=== PATIENT | male | born 1955 | race Caucasian/White ===

== ENCOUNTER 2017-03-20 23:05 | Inpatient (IN) | payer SELFPAY ==
[~2017-03-20 23:05] MED LIST: ISOVUE-370 76%-LOCM 1 ML ONE
[2017-03-20 23:44] LABS: #Basophils 0.1 thou/uL (0.0-0.2); #Eosinphils 0.1 thou/uL (0.0-0.7); #Monocytes 0.6 thou/uL (0.11-0.59); #Neutrophils 9.7 thou/uL (1.40-6.50); %Basophils 0.8 % (0.0-1.0); %Eosinophils 0.5 % (0.0-10.0); %Lymphocytes 16.1 % (21.0-51.0); %Monocytes 4.6 % (0.0-10.0); Hematocrit 44.4 % (42.0-52.0); Mean Platelet Volume 6.6 fL (7.4-10.4); Red Blood Cell (RBC) Count 4.43 mill/uL (4.70-6.10); White Blood Cell (WBC) Count 12.5 thou/uL (4.8-10.8)
[2017-03-20 23:53] LABS: PTT 25.2 SEC (22.9-36.1); Prothrombin Time 13.5 SEC (12.0-14.7)
--- NOTE | 2017-03-20 23:57 | RAD ---
PORTABLE CHEST 03/20/17 PROVIDED CLINICAL HISTORY: Chest pain. FINDINGS: No comparisons. The cardiac and mediastinal silhouette is within normal limits. The lungs appear alex r. No pleural fluid or pneumothorax apparent. Comparison is made to the study dated 07/20/12. Calcified granulomata at the right lung base are again seen. IMPRESSION: No evidence for an acute cardiopulmonary process. POS: [facility]
[2017-03-21 00:04] LABS: ALT (SGPT) 18 U/L (8-55); AST (SGOT) 17 U/L (5-34); Alkaline Phosphatase 63 U/L (40-150); Anion Gap 14 mmol/L (10-20); BUN (Urea Nitrogen) 17 mg/dL (8.4-25.7); Bilirubin, Total 0.4 mg/dL (0.2-1.2); CK (CPK) 63 U/L (30-200); Calc. Creatinine Clearance 0 mL/min (70-130); Calcium 9.1 mg/dL (7.8-10.44); Carbon Dioxide 26 mmol/L (23-31); Chloride 101 mmol/L (98-107); Estimated GFR-MDRD Greater than 90; Globulin 2.9 g/dL (2.4-3.5); Protein, Total 6.7 g/dL (5.8-8.1)
[2017-03-21 00:09] LABS: Troponin I Less than 0.010 ng/mL (< 0.028)
[2017-03-21] MEDS ORDERED: Enoxaparin Sodium 40 MG/0.4 ML SYRINGE ONE (03:13)
--- NOTE | 2017-03-21 04:35 | CON ---
DATE OF EMERGENCY ROOM ENCOUNTER: 03/21/2017 HISTORY OF PRESENT ILLNESS: Mr. De La Garza is a 61-year-old gentleman with chronic bilateral leg claudica tion. He noticed this evening he had a cold left lower leg that was numb [facility] He took an aspirin before he came here. Once he got here, his leg began to feel better. He was found to have on examination, palpable bilateral femoral pulses. His right posterior tibial pulse is palpable. On the left, his leg was cool. He had a Doppler signal only in his posterior tib ial artery. CT angiogram was performed that shows patent aorta. At the aortic bifurcation, there is heavy calcif ication of the right common iliac artery with near occlusion. Left iliac system is widely patent. O n the right, there is normal vasculature from the inguinal ligament to the foot. On the left, the tapia perficial femoral artery is occluded in its mid segment and reconstitutes at the above knee popliteal area via collaterals. Currently, the patient is resting comfortably. He is actually [facility] His foot feels better, although it is still tingly. PAST MEDICAL HISTORY: 1. Hypertension. 2. Hyperlipidemia. PAST SURGICAL HISTORY: 1. Left knee surgery. 2. Partial nephrectomy on the right. CURRENT MEDICATIONS AT HOME: 1. Lisinopril 20 mg q. day. 2. Aspirin 325 mg q. day. 3. Atorvastatin 20 mg at bedtime. ALLERGIES: None. REVIEW OF SYSTEMS: Ten point review of systems is performed and is negative except as above. PHYSICAL EXAMINATION: GENERAL: This is a well-developed, well-nourished male in no acute distress. VITAL SIGNS: Pulse is 83 and regular, blood pressure is 119/83. HEENT: Sclerae nonicteric. Pupils are equal, round bilaterally. NECK: Supple, without bruit. CHEST: Clear bilaterally. HEART: Rhythm is regular, without murmur. ABDOMEN: Soft and nontender, without mass. EXTREMITIES: No cyanosis, clubbing or edema. VASCULAR: He has palpable carotid, radial, and femoral pulses bilaterally. On the right, he has a p alpable posterior tibial pulse. On the left, he has a monophasic Doppler signal in his posterior tib ial area. ASSESSMENT AND PLAN: Peripheral vascular disease with left foot rest pain. Patient has been given L ovenox in the emergency department along with aspirin. I will admit him to the telemetry floor to mo nitor his heart rhythm. Later today, we will take him for angiograms. Plan is for right groin stick , right common iliac artery intervention, left SFA intervention if possible. Patient understands, triplett s consented and will plan for intervention later today.
--- NOTE | 2017-03-21 08:28 | CT ---
PRELIMINARY REPORT/[facility]/EMERGENCY AFTER HOURS PROCEDURE: EXAM: CT Angiography Abdomen and Pelvis With Runoff to the Lower Extremities With Intravenous Contrast EXAM DATE/TIME: Exam ordered 03/21/2017 1:07 AM CLINICAL HISTORY: 61 years old, male; Signs and symptoms; Numbness; Lower extremity; Left; Patient HX: Er 6; Pain and d ecreased sensation to lle. Per ems, pulses weak and foot discolored on arrival, color is now getting better and feeling is coming back. TECHNIQUE: Axial computed tomographic angiography images of the abdomen, pelvis and lower extremities with intra venous contrast using CT angiography protocol. MIP reconstructed images were created and reviewed. Coronal and sagittal reformatted images were created and reviewed. CONTRAST: 100 mL of ISOVUE 370 administered intravenously. COMPARISON: No relevant prior studies available. FINDINGS: Lower thorax: No acute findings. VASCULATURE: Aorta: The aorta demonstrates moderate atherosclerotic calcification. There is calcified and noncalci fied atheromatous plaque at the aortic bifurcation resulting in mild bilateral common iliac artery st enosis. No abdominal aortic aneurysm. No dissection. Celiac trunk and mesenteric arteries: No acute findings. No occlusion or significant stenosis. SMA an d ANA LUISA are patent. Renal arteries: No acute findings. No occlusion or significant stenosis. Right iliac arteries: There is mild atheromatous calcified and noncalcified plaque within the bilater al external iliac arteries resulting in mild stenosis. Right femoral/popliteal arteries: The RIGHT femoral artery patent with mild stenosis just proximal to the SFA/profunda bifurcation. The RIGHT profunda femoris artery is patent. The RIGHT superficial fem oral artery is patent. The RIGHT popliteal artery is patent and there is patent runoff to the RIGHT f oot. Right calf/foot arteries: No acute findings. No occlusion or significant stenosis. Left iliac arteries: See above. Left femoral/popliteal arteries: There is occlusion of the above-knee LEFT popliteal artery extending proximally 6 cm with above-knee reconstitution via collateralization with patency of the below-knee popliteal artery and patent runoff to the LEFT foot. The LEFT femoral artery is patent with mild sten osis just proximal to the SFA/profunda bifurcation. The LEFT SFA is patent. The LEFT profunda femoris artery is patent. Left calf/foot arteries: No acute findings. No occlusion or significant stenosis. ABDOMEN: Liver: The visualized liver is unremarkable. Gallbladder and bile ducts: The gallbladder is normal. There is no evidence of biliary ductal dilatio n. No calcified stones. Pancreas: Normal. No ductal dilation. No mass. Spleen: Visualized spleen is normal. Adrenals: Normal. No mass. Kidneys and ureters: The kidneys are normal. No hydronephrosis. Stomach and bowel: There is nonspecific distal colonic wall thickening. This may be related to incomp lete distention. Appendix: A normal appendix is identified. PELVIS: Bladder: The bladder is mildly distended. Reproductive: The prostate gland and seminal vesicles are normal. ABDOMEN, PELVIS and LOWER EXTREMITIES: Intraperitoneal space: Normal. No significant fluid collection. No free air. Bones/joints: No acute fracture. No dislocation. Soft tissues: Normal. Lymph nodes: Normal. No enlarged lymph nodes. IMPRESSION: There is occlusion of the above-knee LEFT popliteal artery extending proximally 6 cm with aboveknee r econstitution via collateralization with patency of the below-knee popliteal artery and patent runoff to the LEFT foot. Thank you for allowing us to participate in the care of your patient. Dictated and Authenticated by: Isacc Aguirre MD 03/21/2017 2:30 AM Central Time ([place] & [place]) FINAL REPORT CT ANGIO ABDOMEN AND PELVIS AND BILATERAL LOWER EXTREMITIES: Multiple axial tomograms obtained through the abdomen and pelvis and lower extremities in arterial ph ase with angio protocol. Multiplanar reconstruction and 3D post processing performed. FINDINGS: There is diffuse atherosclerotic disease involving the abdominal aorta. N significant aneurysmal dil atation. Atherosclerotic disease is seen in both common iliac arteries without significant stenosis. There is occlusion of the left superficial artery at Trever's canal in the distal side. This was inc orrectly described as occlusion of the left above the popliteal artery on the preliminary report. Th e popliteal does reconstitute above the knee space and there is 3-vessel trifurcation below the joint space. I am in agreement with the preliminary report. POS: [facility]
[2017-03-21] MEDS ORDERED: Aspirin 325 MG TAB ONE (13:39)
[2017-03-21] MEDS ORDERED: Lisinopril 10 MG TAB ONE (13:39)
[2017-03-21] MEDS ORDERED: Fentanyl 100 MCG/2 ML VIAL ONE ×2 (14:38→16:04)
[2017-03-21] MEDS ORDERED: Midazolam HCl 2 mg/2 ml Vial ONE (14:39)
[2017-03-21] MEDS ORDERED: Heparin 10,000 UNITS/1 ML VIAL ONE (15:03)
[2017-03-21] MEDS ORDERED: hydrALAZINE 20 MG/ML VIAL ONE (15:30)
[2017-03-21] MEDS ORDERED: Metoprolol Tartrate 5 MG/5 ML VIAL ONE (15:38)
[2017-03-21] MEDS ORDERED: Metoprolol Tartrate 5 MG/5 ML VIAL IVP PRN (17:02)
[2017-03-21] MEDS ORDERED: HYDROcodone/Acetaminophen 5/325 mg Tablet PO PRN ×2 (17:02)
[2017-03-21] MEDS ORDERED: Fentanyl 100 MCG/2 ML VIAL SLOW IVP PRN ×2 (17:02)
[2017-03-21] MEDS ORDERED: hydrALAZINE 20 MG/ML VIAL SLOW IVP PRN ×2 (17:02)
[2017-03-21] MEDS ORDERED: Sodium Chloride 0.9% 1,000 ML IV SCH (18:15)
--- NOTE | 2017-03-21 22:54 | CCL ---
DATE OF PROCEDURE: 03/21/2017 PREOPERATIVE DIAGNOSIS: Peripheral vascular disease with occluded left superficial femoral artery an d near occlusion of the right common iliac artery with left leg rest pain. POSTOPERATIVE DIAGNOSIS: Peripheral vascular disease with occluded left superficial femoral artery a nd near occlusion of the right common iliac artery with left leg rest pain. PROCEDURES: 1. Ultrasound-guided vascular access of the right common femoral artery. 2. Abdominal aortogram with pelvic runoff. 3. Left common iliac, external iliac, SFA, popliteal, tibioperoneal trunk angiogram with left leg ru noff. 4. Right external iliac, common iliac artery angiogram. 5. Left superficial femoral artery SHOP HELPER with a 4 x 100 [place] balloon followed by a 4 x 100 Lutonix balloon. These were 3-minute inflations. 6. Left SFA stenting with a 5 x 40 Innova nitinol stent posted with a 5 x 40 [place] balloon. 7. Right common iliac primary stenting with a 9 x 25 Express LD stent taken to 12 mmHg. TOTAL FLUOROSCOPY TIME: 9.5 minutes. TOTAL CONTRAST: 60 mL DESCRIPTION OF PROCEDURE: After consent was obtained, the patient was brought to the technical laboratory asst and pl aced in the supine position on the technical laboratory asst table. Appropriate anesthetic monitor was placed, IV sed ation begun. Groins were prepped and draped in usual sterile fashion. Using the ultrasound guidance , the right groin was anesthetized with 1% lidocaine. Percutaneous access to the right common femora l artery was obtained using ultrasound guidance. A 5-Maltese sheath was placed. The Contra catheter was then positioned in the lower abdominal aorta. Hand injected aortogram was performed revealing no rmal aortic vasculature. There was a tight stenosis of the right common iliac artery that was noted. Left common internal and external iliac arteries were all within normal limits. Contra catheter wa s guided over the abdominal aorta. Tip of the catheter was positioned in the common iliac artery and hand injected arteriogram was performed. This allowed us to guide the catheter through the tortuous iliac system into the external iliac artery. Hand injected arteriogram was performed with the tip o f the catheter in the external iliac artery illuminating the upper thigh. SFA had sluggish flow in i t. The profunda was widely patent, common femoral artery was widely patent. The catheter was then g uided down into the superficial femoral artery. Hand injected arteriogram was performed illuminating an occluded area with calcification and some thrombus within the superficial femoral artery mid port ion. This was approximately 6 cm in length. There was a good reconstitution of the above knee popli teal artery. Angled-glide catheter and Glidewire were used to traverse the occlusion. Hand injected arteriogram was performed with the tip of the catheter in the popliteal artery showing good flow int o the tibials. Catheter was passed further into the tibioperoneal trunk and hand injected arteriogra m was performed showing 3-vessel runoff into the foot. The patient was given 5000 units of heparin. A Magic Torque guidewire was then placed through the angle glide catheter and the glide catheter rem livier. A 5-Maltese sheath was exchanged for a 5-Maltese destination sheath. A 4 x [address] [place] balloon was passed into the superficial femoral artery. The balloon was inflated over the area of occlusion. Followup angiogram with the tip of the sheath in the superficial femoral artery showed a good resul t with some dissection proximally. 4 x 100 early Lutonix was then positioned over the same area and inflated. After 3 minutes, the balloon was deflated. Hand injected arteriogram showed an excellent result except for one short segment in the mid SFA area of treatment where there was calcification an d dissection. This was treated with a 5 x 40 Innova stent. This was inflated and posted with a 5 x 40 [place] balloon. Hand injected arteriogram showed an excellent result with no residual stenosis. There was no thrombus which had passed distally. The sheath was back over the aortic bifurcation in to the right external iliac artery. Hand injected arteriogram was performed illuminating the area of stenosis of the proximal common iliac artery. The 6-Maltese sheath was then exchanged for a 7-Maltese short sheath with a marker tip. This was positioned right at the aortic bifurcation and hand inject ed arteriogram performed illuminating the area of stenosis. A 9 x 25 balloon expandable stent was se lected, positioned, and inflated. A followup angiogram showed an excellent result. [facility] and he was transferred to the recovery area. The sheath will be removed later today and he will be admitted to the hospital for observation overnight. POS: [facility]
[2017-03-22 04:18] VITALS: BMI 25.4
--- NOTE | 2017-03-22 07:56 | DIS ---
DIAGNOSES: Peripheral vascular disease with occlusion left superficial femoral artery and a critical stenosis to the right common iliac artery. PROCEDURES: Angiograms with left superficial femoral artery BIZTALK ARCHITECT/stenting, right common iliac artery BIZTALK ARCHITECT stenting. DESCRIPTION OF HOSPITAL STAY: Mr. De La Garza was admitted through the emergency department. He had left leg rest pain and claudication in the right leg. He underwent intervention and has done well postope ratively. He has a palpable posterior tibial pulse bilaterally. His groin access site on the right is hemostatic with no hematoma. He is being discharged home to follow up with me in 2-3 weeks. DISCHARGE MEDICATIONS: 1. Aspirin 81 mg. 2. Plavix 75 mg daily. 3. Metoprolol 25 mg b.i.d. 4. Lisinopril 20 mg b.i.d. 5. Lipitor 20 mg at bedtime.
[2017-03-22] MEDS ORDERED: Aspirin 81 mg Enteric Coated Tablet PO SCH (09:00)
[2017-03-22] MEDS ORDERED: Clopidogrel Bisulfate 75 MG TAB PO SCH (09:00)
[2017-03-22 09:09] VITALS: TEMP 98.1
[2017-03-22 11:11] VITALS: BP 147/78
== END 2017-03-22 11:08 | disposition home or self-care (01) | DRG 254 ==
LOC: ERS 23:05 → ERHOLD 03-21 04:00 → 2NO 03-21 19:46
PROVIDERS: ADMIT Family Medicine; ATTEND Family Medicine
PROC: 047L3Z1 Dilation of Left Femoral Artery using Drug-Coated Balloon, Percutaneous Approach (ICD-10-PCS; principal; 2017-03-21)
PROC: 047L3DZ Dilation of Left Femoral Artery with Intraluminal Device, Percutaneous Approach (ICD-10-PCS; 2017-03-21)
PROC: 047C3DZ Dilation of Right Common Iliac Artery with Intraluminal Device, Percutaneous Approach (ICD-10-PCS; 2017-03-21)
PROC: B4101ZZ Fluoroscopy of Abdominal Aorta using Low Osmolar Contrast (ICD-10-PCS; 2017-03-21)
PROC: B41F1ZZ Fluoroscopy of Right Lower Extremity Arteries using Low Osmolar Contrast (ICD-10-PCS; 2017-03-21)
PROC: B41G1ZZ Fluoroscopy of Left Lower Extremity Arteries using Low Osmolar Contrast (ICD-10-PCS; 2017-03-21)
DX: I77.89 Other specified disorders of arteries and arterioles (principal); I10 Essential (primary) hypertension; E78.5 Hyperlipidemia, unspecified
CPT/HCPCS: 36415; 37221; 37226; 71010; 75635; 76942; 80053; 82550; 82553; 83690; 83880; 84484; 85025; 85379; 85610; 85730; 86850; 86900; 86901; 93005; 99152; 99153; C1725; C1769; C1876; C1887; J0360; J1644; J1650; J2250; J3010

== ENCOUNTER 2019-04-14 08:04 | Outpatient (CLI) | payer OTHER ==
[2019-04-14] MEDS ORDERED: ADENOSINE 60 MG/20 ML VIAL ONE (11:21)
--- NOTE | 2019-04-14 11:57 | NM ---
NUCLEAR MEDICINE CARDIAC STRESS WITH EF AND WALL MOTION: HISTORY: Chest tightness. Syncope. Collapse. TECHNIQUE: Patient was administered 11 mCi of technetium 99m sestamibi for rest imaging and 31.90 mCi of technet ium 99m for sestamibi for stress imaging. Cardiac gating was performed. FINDINGS: Homogeneous distribution of radiotracer in the left ventricle on the attenuation corrected images. No reversibility or fixed defect. TID is 1.09. End-diastolic volume: 94 mL. End systolic volume 29 mL. Cardiac gating: Normal wall motion and thickening. 69% ejection fraction. IMPRESSION: 1. Homogeneous distribution of the radiotracer in the left ventricle. No fixed defect or reversibilit y. 2. 69% ejection fraction. Transcribed Date/Time: 04/14/2019 12:41 PM
== END 2019-04-14 08:05 | disposition home or self-care (01) ==
LOC: NM 08:04
PROVIDERS: ATTEND Family Medicine
DX: R55 Syncope and collapse (principal)
CPT/HCPCS: 78452; 93017; A9500; J0153

== ENCOUNTER 2020-02-19 06:59 | Outpatient (CLI) | payer SELFPAY ==
[2020-02-19 16:23] LABS: Anion Gap 13 mmol/L (10-20); BUN (Urea Nitrogen) 16 mg/dL (8.4-25.7); Calc. Creatinine Clearance 0 mL/min (70-130); Calcium 8.6 mg/dL (7.8-10.44); Carbon Dioxide 26 mmol/L (23-31); Chloride 100 mmol/L (98-107); Estimated GFR-MDRD 74; Glucose 108 mg/dL (80-115); Potassium 4.6 mmol/L (3.5-5.1); Sodium 134 mmol/L (136-145)
[2020-02-19 16:24] LABS: Hemoglobin 14.3 g/dL (14.0-18.0); Mean Corpuscular HGB CONC 32.6 G/DL (32.0-36.0); Mean Corpuscular Hemoglobin 32.4 PG (27.0-33.0); Mean Corpuscular Volume 99.5 fl (80.0-100.0); Mean Platelet Volume 9.7 fl (7.4-10.4); Platelet Count 288 10x3/uL (130-400); RBC Distribution Width 12.4 % (11.5-14.5); Red Blood Cell (RBC) Count 4.41 10x6/uL (4.40-5.80); White Blood Cell (WBC) Count 8.5 10x3/uL (4.5-11.0)
[2020-02-19 16:38] LABS: PTT 27.6 sec (22.0-33.0); Prothrombin Time 10.6 sec (9.5-12.1)
[2020-02-19 16:42] LABS: Bilirubin Neg (Negative); Blood, Urine 250 (Negative); Glucose, Urine (Dipstick) Normal (Negative); Ketone, Urine Negative (Negative); Leukocyte Negative (Negative); Nitrite Negative (Negative); Protein, Urine (Dipstick) 30 mg/dl (Neg-Trace); Urobilinogen Normal mg/dL (Less than 2)
[2020-02-19 16:58] LABS: Bacteria/HPF Rare-Few HPF (None Seen); RBC/HPF Greater than 50 HPF (0-3); Squamous Epithelial 0-3 HPF (0-3); WBC/HPF 0-3 HPF (0-3)
[2020-02-20 04:01] LABS: SARS-CoV-2 MS2 Positive; SARS-CoV-2 N Gene Negative; SARS-CoV-2 S Gene Negative; SARS-CoV-2 by NAA Not Detected (NotDetected); SARS-CoV-2 orf1ab Negative
== END 2020-02-19 07:00 | disposition home or self-care (01) ==
LOC: LABBT 06:59
PROVIDERS: ATTEND Urology
DX: Z01.818 Encounter for other preprocedural examination (principal); D49.4 Neoplasm of unspecified behavior of bladder; Z20.828 Contact with and (suspected) exposure to other viral communicable diseases
CPT/HCPCS: 80048; 81001; 85027; 85610; 85730; 87086; 87635; 93005; 93010; U0003

== ENCOUNTER 2020-03-02 07:10 | Outpatient (CLI) | payer SELFPAY ==
[2020-03-03 03:03] LABS: SARS-CoV-2 MS2 Positive; SARS-CoV-2 N Gene Negative; SARS-CoV-2 S Gene Negative; SARS-CoV-2 by NAA Not Detected (NotDetected); SARS-CoV-2 orf1ab Negative
== END 2020-03-02 07:11 | disposition home or self-care (01) ==
LOC: LABBT 07:10
PROVIDERS: ATTEND Urology
DX: Z01.812 Encounter for preprocedural laboratory examination (principal); D49.4 Neoplasm of unspecified behavior of bladder; Z20.828 Contact with and (suspected) exposure to other viral communicable diseases
CPT/HCPCS: 87635; U0003

== ENCOUNTER 2020-03-05 07:20 | Day surgery (SDC) | payer OTHER ==
[2020-03-05] MEDS ORDERED: Levofloxacin 500 mg/D5W 100 ml Premix Bag ONE (07:55)
[2020-03-05] MEDS ORDERED: Fentanyl 100 MCG/2 ML VIAL ONE (09:06)
[2020-03-05] MEDS ORDERED: Lidocaine 2% Jelly 5 ML TUBE ONE (09:07)
[2020-03-05] MEDS ORDERED: Iothalamate Meglumine 60% 50 ML VIAL FS ONE (09:11)
[2020-03-05] MEDS ORDERED: Ondansetron PF 4 MG/2 ML Vial ONE (09:59)
[2020-03-05] MEDS ORDERED: SUGAMMADEX SODIUM 200 MG/2 ML VIAL ONE (09:59)
[2020-03-05] MEDS ORDERED: Rocuronium Bromide 10 MG/ML (10ML VIAL) ONE (09:59)
[2020-03-05] MEDS ORDERED: PROPOFOL 200 MG/20 ML VIAL ONE (09:59)
[2020-03-05] MEDS ORDERED: Lidocaine 1% PF 5 ML VIAL ONE (09:59)
[2020-03-05] MEDS ORDERED: ePHEDrine 50 MG/ML VIAL ONE (09:59)
[2020-03-05] MEDS ORDERED: Glycopyrrolate 0.2 MG/ML 5 ML SYRINGE ONE (09:59)
[2020-03-05] MEDS ORDERED: Phenazopyridine HCl 100 MG TAB ONE (10:08)
[2020-03-05] MEDS ORDERED: Ketorolac Tromethamine 30 MG/ML VIAL ONE (10:08)
[2020-03-05] MEDS ORDERED: Oxybutynin 5 MG TAB ONE (10:09)
--- NOTE | 2020-03-05 10:16 | RAD ---
EXAM: XR IVP Retrograde DATE: 03/05/2020 12:00 AM INDICATION: Cystoscopy COMPARISON: CT the abdomen and pelvis with and without contrast dated February 09, 2020 FINDING: The 2 submitted intraoperative retrograde IVP images demonstrate cannulization of the left and right renal collecting systems. No focal defect is seen within the opacified renal collecting systems. No obstruction is evident. IMPRESSION:As above.
--- NOTE | 2020-03-05 11:06 | OP ---
DATE OF PROCEDURE: 03/05/2020 PREOPERATIVE DIAGNOSIS: Bladder tumor. POSTOPERATIVE DIAGNOSIS: Bladder tumor. PROCEDURES PERFORMED: Transurethral resection of bladder tumor and bilateral retrograde pyelogram. ANESTHESIA: General. COMPLICATIONS: None. ESTIMATED BLOOD LOSS: Minimal. SPECIMENS: Bladder tumor, muscle biopsy. DESCRIPTION OF PROCEDURE: After informed consent, the patient was taken to the operating room, transferred to the table under his own power. Anesthesia was established. Time-out was performed showing correct patient, site, and procedure. Preoperative antibiotics were administered. He was prepped and draped in the lithotomy position. I began by dilating the urethral meatus to 30-Yi with Dara sounds. The rigid resectoscope then easily passed through the urethra noting normal course and caliber at the urethra into the prostate noting coapting lateral lobes. The bladder was entered and systematically examined noting minimal trabeculation with a large tumor about 5 cm on the left wall close to, but not involving the left ureteral orifice. There were no other abnormalities on 30 and 70 degree lens inspection. I performed bilateral retrograde pyelograms with a Pollack catheter, noting both ureters to have a normal course and caliber without filling defect. The resection loop was then used to remove the bladder tumor, which was passed off the specimen. A muscle biopsy was taken from the base and then electrocautery was used to ensure hemostasis. The bladder was then re-examined noting no active bleeding or residual specimen in the bladder. The bladder was filled to about 150 mL to facilitate a void trial. He was then awoken from anesthesia transferred back to his hospital bed and taken to PACU in stable condition, where he will discharge home upon recovery. Job ID: [id number]
== END 2020-03-05 15:50 | disposition home or self-care (01) ==
LOC: SDC 07:20
PROVIDERS: ATTEND Urology
PROC: 0T5B8ZZ Destruction of Bladder, Via Natural or Artificial Opening Endoscopic (ICD-10-PCS; principal; 2020-03-05)
DX: D41.4 Neoplasm of uncertain behavior of bladder (principal); N40.1 Benign prostatic hyperplasia with lower urinary tract symptoms; F17.290 Nicotine dependence, other tobacco product, uncomplicated; Z79.82 Long term (current) use of aspirin; Z79.02 Long term (current) use of antithrombotics/antiplatelets; Z79.899 Other long term (current) drug therapy
CPT/HCPCS: 74420; 88307; J1885; J1956; J2405; J2704; J3010; J3490

== ENCOUNTER 2020-12-03 10:33 | Day surgery (SDC) | payer MEDICARE ==
[2020-12-01 15:43] VITALS: BMI 26.6
[2020-12-03] MEDS ORDERED: Levofloxacin 500 mg/D5W 100 ml Premix Bag ONE (13:26)
[2020-12-03] MEDS ORDERED: mitoMYcin 40 MG in Sterile Water 20 ML I-VESIC SCH (13:45)
[2020-12-03] MEDS ORDERED: Iothalamate Meglumine 60% 30 ML VIAL FS ONE (14:36)
[2020-12-03] MEDS ORDERED: Fentanyl 100 MCG/2 ML VIAL ONE (14:39)
[2020-12-03] MEDS ORDERED: PROPOFOL 200 MG/20 ML VIAL ONE (14:49)
[2020-12-03] MEDS ORDERED: Lidocaine 1% PF 5 ML VIAL ONE (14:49)
[2020-12-03] MEDS ORDERED: Ondansetron PF 4 MG/2 ML Vial ONE (14:49)
[2020-12-03] MEDS ORDERED: Dexamethasone 20 MG/5 ML VIAL ONE (14:49)
[2020-12-03] MEDS ORDERED: ePHEDrine 50 MG/ML VIAL ONE (14:49)
[2020-12-03] MEDS ORDERED: Ketorolac Tromethamine 30 MG/ML VIAL ONE (15:35)
[2020-12-03] MEDS ORDERED: Oxybutynin 5 MG TAB ONE (15:36)
[2020-12-03] MEDS ORDERED: Phenazopyridine HCl 100 MG TAB ONE (15:36)
== END 2020-12-03 17:00 | disposition home or self-care (01) ==
LOC: SDC 10:33
PROVIDERS: ATTEND Urology
PROC: 0TBB8ZX Excision of Bladder, Via Natural or Artificial Opening Endoscopic, Diagnostic (ICD-10-PCS; principal; 2020-12-03)
PROC: 3E0K805 Introduction of Other Antineoplastic into Genitourinary Tract, Via Natural or Artificial Opening Endoscopic (ICD-10-PCS; 2020-12-03)
DX: D30.3 Benign neoplasm of bladder (principal); N30.90 Cystitis, unspecified without hematuria; I25.2 Old myocardial infarction; Z79.02 Long term (current) use of antithrombotics/antiplatelets; Z79.82 Long term (current) use of aspirin; Z79.899 Other long term (current) drug therapy; Z90.5 Acquired absence of kidney
CPT/HCPCS: 51720; 52234; J9280; 88305; J1100; J1885; J1956; J2405; J2704; J3010; J3490

== ENCOUNTER 2021-07-14 15:28 | Outpatient (CLI) | payer MEDICARE ==
[2021-07-14 16:40] LABS: #Basophils 0.1 10x3/uL (0.0-0.2); #Eosinphils 0.2 10x3/uL (0.0-0.5); #Monocytes 0.7 10x3/uL (0.0-1.1); #Neutrophils 5.1 10x3/uL (1.5-8.4); %Basophils 1.1 % (0.0-2.0); %Eosinophils 1.8 % (0.0-6.0); %Lymphocytes 28.9 % (18.0-47.0); %Monocytes 7.8 % (0.0-10.0); Hemoglobin 13.5 g/dL (13.5-17.5); Mean Corpuscular HGB CONC 33.2 g/dL (32.0-36.0); Mean Corpuscular Hemoglobin 32.5 pg (27.0-33.0); Mean Corpuscular Volume 98.1 fl (81.2-95.1); Mean Platelet Volume 9.4 fl (7.4-10.4); Platelet Count 277 10x3/uL (150-450); RBC Distribution Width 13.8 % (11.5-14.5); Red Blood Cell (RBC) Count 4.15 10x6/uL (4.32-5.72); White Blood Cell (WBC) Count 8.4 10x3/uL (3.5-10.5)
[2021-07-14 17:02] LABS: ALT (SGPT) 30 U/L (8-55); AST (SGOT) 27 U/L (5-34); Albumin 4.3 g/dL (3.4-4.8); Alkaline Phosphatase 67 U/L (40-110); Anion Gap 14 mmol/L (10-20); BUN (Urea Nitrogen) 17 mg/dL (8.4-25.7); Bilirubin, Total 0.5 mg/dL (0.2-1.2); Calc. Creatinine Clearance 0 mL/min (70-130); Calcium 9.1 mg/dL (7.8-10.44); Carbon Dioxide 25 mmol/L (23-31); Chloride 104 mmol/L (98-107); Globulin 2.8 g/dL (2.4-3.5); Glucose 81 mg/dL (80-115); Protein, Total 7.1 g/dL (5.8-8.1); Sodium 138 mmol/L (136-145)
[2021-07-15 16:34] LABS: SARS-CoV-2 PCR by NAA Not Detected (NotDetected)
== END 2021-07-14 15:29 | disposition home or self-care (01) ==
LOC: LABBT 15:28
PROVIDERS: ATTEND Internal Medicine Cardiovascular Disease
DX: Z01.812 Encounter for preprocedural laboratory examination (principal); Z20.822 Contact with and (suspected) exposure to COVID-19
CPT/HCPCS: 80053; 85025; U0003; U0005

== ENCOUNTER 2024-12-25 15:30 | Outpatient (CLI) | payer MEDICARE | END 2024-12-25 15:31 | disposition home or self-care (01) | LOC: SCSRAD 15:30 | PROVIDERS: ATTEND Family Medicine | DX: M79.641 Pain in right hand (principal) ==

== ENCOUNTER 2025-01-07 18:27 | Emergency (ER) | payer MEDICARE ==
[2025-01-07] MEDS ORDERED: Lidocaine 1% w/Epinephrine 1:100K 20 ML VIAL ONE ×2 (18:34→19:15)
[2025-01-07] MEDS ORDERED: Boostrix 0.5 ML (Tdap) VIAL (>/=7 yrs of age) ONE (18:34)
[2025-01-07 18:46] LABS: #Basophils 0.10 10x3/uL (0.0-0.2); #Eosinophils 0.12 10x3/uL (0.0-0.7); #Monocytes 1.06 10x3/uL (0.11-0.59); #Neutrophils 9.55 10x3/uL (1.40-6.50); %Basophils 0.7 % (0.0-1.0); %Eosinophils 0.9 % (0.0-10.0); %Lymphocytes 20.0 % (21.0-51.0); %Monocytes 7.8 % (0.0-10.0); %Neutrophils 70.1 % (42.0-75.0); Hematocrit 38.1 % (42.0-52.0); Hemoglobin 12.4 g/dL (14.0-18.0); Mean Corpuscular Hemoglobin 32.0 pg (27.0-31.0); Mean Corpuscular Volume 98.2 fL (78.0-98.0); Platelet Count 311 10x3/uL (130-400); Red Blood Cell (RBC) Count 3.88 mill/uL (4.70-6.10); White Blood Cell (WBC) Count 13.63 10x3/uL (4.8-10.8)
[2025-01-07] MEDS ORDERED: Tranexamic Acid 1,000 MG/10 ML VIAL ONE (18:50)
[2025-01-07 19:04] LABS: ALT (SGPT) 21 U/L (Less than 45); AST (SGOT) 25 U/L (11-34); Albumin 3.6 g/dL (3.1-4.5); Alkaline Phosphatase 70 U/L (40-110); Anion Gap 14 mmol/L (10-20); BUN (Urea Nitrogen) 12 mg/dL (8.4-25.7); Bilirubin, Total 0.2 mg/dL (0.3-1.2); Calc. Creatinine Clearance 0 mL/min (70-130); Calcium 8.5 mg/dL (7.8-10.44); Carbon Dioxide 24 mmol/L (23-31); Chloride 98 mmol/L (98-107); Globulin 3.0 g/dL (2.4-3.5); Glucose 111 mg/dL (80-115); Potassium 4.5 mmol/L (3.5-5.1); Sodium 131 mmol/L (136-145)
[2025-01-07] MEDS ORDERED: Bacitracin 1 PK ONE (21:49)
== END 2025-01-07 22:00 | disposition home or self-care (01) ==
LOC: ERS 18:27
DX: S41.112A Laceration without foreign body of left upper arm, initial encounter (principal); W22.8XXA Striking against or struck by other objects, initial encounter; Z23 Encounter for immunization
CPT/HCPCS: 12006; 73030; 73060; 73070; 73090; 80053; 85025; 90471; 90715; 96374; 99283; G0390